=== PATIENT | female | born 1990 ===

== ENCOUNTER 2017-02-25 06:02 | Inpatient (IN) | payer OTHER ==
[~2017-02-25] VITALS: Ht 165.1 cm; Wt 83.2 kg
[2017-04-17] VITALS (28 sets, daily range): BP systolic 112–137; BP diastolic 57–83; PULSE 69–114; TEMP 97.4–98.8
[2017-04-17] MEDS ORDERED: PRENATAL1 TA7 PO (07:28)
[2017-04-17] MEDS ORDERED: ZANTAC 150MG T150 MG PO (07:28)
[2017-04-17 08:00] LABS: BASO % 0.3 % (0.0-2.0); EOS % 0.3 % (0-4.0); GRAN # 5.1 (1.4-6.5); GRAN % 70.9 % (42.2-75.2); LYMPH # 1.6 (1.2-3.4); LYMPH % 21.8 % (20.0-51.0); MEAN CELL VOLUME 87 fl (80.0-100.0); MEAN CORPUSCULAR HGB CONC 34 g/dl (33.0-37.0); MEAN PLATELET VOLUME 12.4 fl (7.4-10.4); MONO # 0.5 (0.1-0.6); MONO % 6.4 % (1.7-9.3); PLATELET COUNT 148 K/mm3 (130-400); RED BLOOD COUNT 3.52 M/mm3 (4.10-5.30); REDCELL DISTRIBUTION WIDTH-CV 12.2 % (11.5-14.5); WHITE BLOOD COUNT 7.1 K/mm3 (4.8-10.8)
[2017-04-17 08:03] LABS: HEMATOCRIT 30.5 % (37.0-47.0); HEMOGLOBIN 10.4 g/dl (12.5-16.0); MEAN CORPUSCULAR HEMOGLOBIN 30 pg (27.0-31.0)
[2017-04-18 07:02] LABS: HEMATOCRIT 29.6 % (37.0-47.0)
[2017-04-18] MEDS ORDERED: IBU600 MG PO (08:44)
== END 2017-04-18 14:00 | disposition home or self-care (01) | DRG 775 ==
LOC: OB 04-17 06:57 → LDR 04-17 06:57 → OB 04-17 15:50 → LDRO 04-20 06:01 → EDSTATUS 04-20 08:14 → LDR 04-20 08:20 → LDRO 04-20 09:24
PROVIDERS: Obstetrics & Gynecology
PROC: 10E0XZZ Delivery of Products of Conception, External Approach (ICD-10-PCS; principal; 2017-04-17)
PROC: 3E033VJ Introduction of Other Hormone into Peripheral Vein, Percutaneous Approach (ICD-10-PCS; 2017-04-17)
DX: O24.420 Gestational diabetes mellitus in childbirth, diet controlled (principal); Z3A.39 39 weeks gestation of pregnancy; Z37.0 Single live birth
CPT/HCPCS: J2590; J2795; J7120

== ENCOUNTER → 2017-03-06 | Outpatient (CLI) | payer OTHER ==
[~2017-03-06] MED LIST: IBU600 MG PO; PRENATAL1 TA7 PO; ZANTAC 150MG T150 MG PO
== END ==
LOC: SUN.DIA 08:29
DX: O24.419 Gestational diabetes mellitus in pregnancy, unspecified control (principal); Z3A.34 34 weeks gestation of pregnancy
CPT/HCPCS: G0108

== ENCOUNTER → 2017-03-13 | Outpatient (CLI) | payer OTHER | LOC: SUN.DIA 08:40 | DX: O24.419 Gestational diabetes mellitus in pregnancy, unspecified control (principal); Z3A.35 35 weeks gestation of pregnancy; Z71.3 Dietary counseling and surveillance | CPT/HCPCS: G0108 ==